=== PATIENT | female | born 1960 | race Two or more races ===

== ENCOUNTER 2025-03-10 12:49 | Emergency (ER) | payer OTHER ==
[~2025-03-10] VITALS: Ht 165.1 cm; Wt 54.4 kg
[2025-03-10] MEDS ORDERED: CENTRUM ADULT80 MCG (13:15)
[2025-03-10] MEDS ORDERED: SYNTHROID88 MCG (13:19)
[2025-03-10] MEDS ORDERED: KETOROLAC TROMETHAMINE 30 MG VIAL IM STA (13:39)
[2025-03-10] MEDS ORDERED: KETOROLAC TROMETHAMINE 30 MG VIAL ONE (13:40)
[2025-03-10 13:58] LABS: BASO % 0.3 % (0.1-1.2); EOS # 0.10 (0.04-0.54); EOS % 1.6 % (0.7-7.0); LYMPH # 1.47 (1.18-3.74); LYMPH % 23.6 % (19.3-53.1); MEAN PLATELET VOLUME 10.50 fl (9.4-12.4); MONO # 0.32 (0.24-0.82); MONO % 5.1 % (4.7-12.5); NEUT # 4.26 (1.56-6.13); NEUT % 68.4 % (34.0-71.1); RED CELL DISTRIBUTION WIDTH 14.0 % (11.6-14.4)
[2025-03-10 14:35] LABS: ALT/SGPT 20.0 U/L (12-78); AST/SGOT 8.0 U/L (15-37); BILIRUBIN TOTAL 0.62 mg/dL (0.3-1.2); BUN CREA RATIO 26.0 (7.0-25.0); CREATININE SERUM 0.57 mg/dL (0.55-1.02); GFR 106.12; GLOBULINA 3.3 G/DL (2.4-3.5); GLUCOSE FASTING 134.0 mg/dL (65-100); OSMOLALITY SERUM 290.0 MOSM/KG (275-295)
[2025-03-10 14:45] LABS: URINE APPEARANCE Clear; URINE BILIRRUBIN Negative (NEGATIVE); URINE BLOOD Negative; URINE COLOR Yellow; URINE GLUCOSE Negative (NEGATIVE); URINE KETONE Negative (NEGATIVE); URINE LEUKOCYTE Trace; URINE NITRATE Negative; URINE PROTEIN Negative (NEGATIVE); URINE UROBILINOGEN 1.0 E.U./dl
[2025-03-10 14:46] LABS: URINE EPITHELIAL CELLS 5.6 uL (0.0-38.8); URINE RBC 2.4 uL (0.0-20.8); URINE WBC 12.8 uL (0.0-23.2)
[2025-03-10 14:54] LABS: URINE BACTERIA 3.5 uL (0.0-1933); URINE CAST 0.29 uL (0.0-1.40)
[2025-03-10] MEDS ORDERED: CELEBREX200MG PO (18:34)
[2025-03-10] MEDS ORDERED: METAXALONE800 MG PO (18:34)
== END 2025-03-10 19:46 | disposition home or self-care (01) ==
LOC: ER 12:49
PROVIDERS: General Practice
DX: M54.9 Dorsalgia, unspecified (principal)
CPT/HCPCS: 36415; 72100; 96372; 99283; J1885